=== PATIENT | female | born 2000 | race Two or more races ===

== ENCOUNTER 2022-12-17 01:13 | Emergency (ER) | payer SELFPAY ==
[~2022-12-17] VITALS: Ht 172.7 cm; Wt 100.0 kg
[2022-12-17 01:31] VITALS: BP 107/68; PULSE 103; RESP 20; O2SAT 96
== END 2022-12-17 01:48 | disposition short-term general hospital (02) ==
LOC: EDBD 01:13 → ER 01:13
DX: S80.812A Abrasion, left lower leg, initial encounter (principal); I95.89 Other hypotension; V89.2XXA Person injured in unspecified motor-vehicle accident, traffic, initial encounter; Y93.89 Activity, other specified; Y92.89 Other specified places as the place of occurrence of the external cause; Y99.8 Other external cause status; R41.0 Disorientation, unspecified